=== PATIENT | female | born 1935 | race Hispanic/Latino ===

== ENCOUNTER 2019-06-28 19:56 | Emergency (ER) | payer OTHER ==
[~2019-06-28 19:56] MED LIST: ALEN70TA10 PO; FOLI1TAB15 PO; HYDR12.530 PO; LEVO50TA11 PO; MIRA50TA PO; ROSU5TAB PO
== END 2019-06-28 21:42 | disposition home or self-care (01) ==
LOC: EDH 19:56
DX: N81.10 Cystocele, unspecified (principal); I10 Essential (primary) hypertension; E78.5 Hyperlipidemia, unspecified; M81.0 Age-related osteoporosis without current pathological fracture; M19.90 Unspecified osteoarthritis, unspecified site; Z90.710 Acquired absence of both cervix and uterus; Z98.890 Other specified postprocedural states; Z88.1 Allergy status to other antibiotic agents

== ENCOUNTER 2020-04-16 10:19 | Inpatient (IN) | payer OTHER ==
[~2020-04-16] VITALS: Ht 160 cm; Wt 61.6 kg
[~2020-04-16 10:19] MED LIST changes: -ALEN70TA10 PO; +ALEN70TA69 PO
[2020-04-16] MEDS ORDERED: TETANUS/DIPHTHERIA TOXOID [ADULT] 0.5 ML VIAL IM ONE (10:38)
[2020-04-16] MEDS ORDERED: KETOROLAC TROMETHAMINE 30MG/ML ONE (11:49)
[2020-04-16] MEDS ORDERED: KETOROLAC TROMETHAMINE 15MG/ML ONE (11:59)
[2020-04-16] MEDS ORDERED: LACTULOSE 20 GM/30 ML UDCUP PO PRN (14:15)
[2020-04-16] MEDS ORDERED: ONDANSETRON HCL 4 MG/2 ML VIAL IVP PRN (14:15)
[2020-04-16] MEDS ORDERED: ACETAMINOPHEN 325 MG TAB PO PRN (14:15)
[2020-04-16] MEDS ORDERED: HYDRALAZINE HCL 20 MG/ML VIAL IV PRN (14:15)
[2020-04-16] MEDS ORDERED: ZOLPIDEM TARTRATE 5 MG TAB PO PRN (14:15)
[2020-04-16] MEDS ORDERED: LABETALOL 20 MG/4 ML DISP.SYRIN IV PRN (14:15)
[2020-04-16] MEDS ORDERED: HYDROMORPHONE HCL 0.5 MG/0.5 ML ML IVP PRN (14:15)
[2020-04-16 20:02] VITALS: BP 139/58
[2020-04-16] MEDS ORDERED: ESCI5TAB10 PO (20:35)
[2020-04-16] MEDS ORDERED: CILO50TA PO (20:35)
[2020-04-16] MEDS ORDERED: OMEP40CA13 PO (20:35)
[2020-04-16] MEDS ORDERED: DOCU100C33 PO (20:35)
[2020-04-16] MEDS ORDERED: AMLO-257 PO (20:35)
[2020-04-16] MEDS: NEOMY SULF/BACITRAC ZN/POLY OINT 30GM TUBE TP SCH (21:00)
[2020-04-16] MEDS: HEPARIN SODIUM 5000UNIT/ML 1ML VIAL SQ SCH (22:24)
[2020-04-16] MEDS: ATORVASTATIN CALCIUM 10 MG TABLET PO SCH (22:25)
[2020-04-16 23:05] VITALS: BP 123/79
[2020-04-17] VITALS (7 sets, daily range): BP systolic 125–164; BP diastolic 58–74
[2020-04-17 04:55] LABS: BASOPHILS % (AUTO) 0.5 % (0.0-5.0); EOSINOPHILS % (AUTO) 1.1 % (0.0-8.0); HEMATOCRIT 31.2 % (36-48); LYMPHOCYTES % (AUTO) 16.4 % (21.0-51.0); MEAN CORPUSCULAR HEMOGLOBIN 32.2 pg (27.0-33.0); MEAN CORPUSCULAR VOLUME 94.8 fL (79-99); MONOCYTES % (AUTO) 8.9 % (3.0-13.0); NEUTROPHILS % (AUTO) 72.9 % (40.0-77.0); PLATELET COUNT (AUTO) 172 K/uL (130-400); RED BLOOD CELL COUNT(AUTO) 3.29 MIL/uL (4.00-5.50); RED CELL DISTRIBUTION WIDTH 11.9 % (11.0-15.5); WHITE BLOOD COUNT (AUTO) 5.6 K/uL (4.8-10.8)
[2020-04-17 05:06] LABS: INR 0.95 (0.85-1.15); PARTIAL THROMBOPLASTIN TIME 29.9 SEC (26.3-35.5); PROTHROMBIN TIME 10.3 SEC (9.6-11.6)
[2020-04-17 05:18] LABS: ALBUMIN 3.4 g/dL (3.5-5.0); BILIRUBIN,TOTAL 0.6 mg/dL (0.2-1.0); CREATININE 0.7 mg/dL (0.5-1.5); POTASSIUM 3.3 mmol/L (3.5-5.1); THYROID STIMULATING HORMONE 0.95 uIU/mL (0.36-3.74)
[2020-04-17] MEDS ORDERED: POTASSIUM CHLORIDE 10% ELIXIR 20 MEQ/15 ML UDCUP PO PRN (07:45)
[2020-04-17] MEDS ORDERED: LIDOCAINE HCL-MPF 1% 2ML VIAL IV PRN (07:45)
[2020-04-17] MEDS ORDERED: POTASSIUM CHLORIDE 20MEQ/100ML 100 ML IV PRN (07:45)
[2020-04-17] MEDS: HYDROCHLOROTHIAZIDE 25 MG TABLET PO SCH (08:54)
[2020-04-17] MEDS: FOLIC ACID 1 MG TABLET PO SCH (08:54)
[2020-04-17] MEDS: LEVOTHYROXINE 50 MCG TABLET PO SCH (08:54)
[2020-04-17] MEDS: POTASSIUM CHLORIDE 20 MEQ ERTAB PO PRN (08:54)
[2020-04-17] MEDS: MIRABEGRON 50 MG PO SCH (08:55)
[2020-04-17] MEDS: HEPARIN SODIUM 5000UNIT/ML 1ML VIAL SQ SCH (08:59)
[2020-04-17] MEDS ORDERED: HEPARIN SODIUM 5000UNIT/ML 1ML VIAL SQ SCH (09:00)
[2020-04-17] MEDS: NEOMY SULF/BACITRAC ZN/POLY OINT 30GM TUBE TP SCH ×3 (09:00→21:15)
--- NOTE | 2020-04-17 15:00 | NUR ---
CONSENT FOR ORIF RIGHT WRIST SIGNED BY PATIENT WITH LEFT HAND PATIENT DOES NOT WANT BLOOD TRANSFUSIONS EVEN IF NEEDED BECAUSE SHE'S A [employer] WITNESS. TASHA BEAVER CALLED [facility] AND GAVE HER UPDATES ON PT STATUS. NO CONCERNS VOICED.
--- NOTE | 2020-04-17 17:54 | NUR ---
INITIAL: Met with pt this afternoon to discuss dcp. Pt mentions that she lives w her spouse. Prior to admission she was independent w ambulation and ADLs. She does not own any DME or receive services. Per pt she feels safe and comfortable to return home at ri and mentions that her spouse will be able to assist her as needed. CM to continue to follow and wait for Md recommendations. Addendum: 04/17/20 at 1756 by JASON WAGNER CM Amended: Links added.
[2020-04-17] MEDS: ACETAMINOPHEN-CODEINE 300/30MG TAB PO PRN (20:29)
[2020-04-17] MEDS: ATORVASTATIN CALCIUM 10 MG TABLET PO SCH (20:29)
[2020-04-18] VITALS (25 sets, daily range): BP systolic 112–168; BP diastolic 52–81
[2020-04-18 05:14] LABS: BASOPHILS % (AUTO) 0.4 % (0.0-5.0); HEMATOCRIT 31.7 % (36-48); LYMPHOCYTES % (AUTO) 24.8 % (21.0-51.0); MEAN CORPUSCULAR HEMOGLOBIN 32.3 pg (27.0-33.0); MEAN CORPUSCULAR HGB CONC 33.8 g/dL (32.0-36.0); MEAN CORPUSCULAR VOLUME 95.8 fL (79-99); MONOCYTES % (AUTO) 9.8 % (3.0-13.0); NEUTROPHILS % (AUTO) 60.8 % (40.0-77.0); PLATELET COUNT (AUTO) 162 K/uL (130-400); RED BLOOD CELL COUNT(AUTO) 3.31 MIL/uL (4.00-5.50); WHITE BLOOD COUNT (AUTO) 4.5 K/uL (4.8-10.8)
[2020-04-18 05:23] LABS: CREATININE 0.7 mg/dL (0.5-1.5); POTASSIUM 3.2 mmol/L (3.5-5.1)
[2020-04-18 05:27] LABS: INR 0.96 (0.85-1.15); PARTIAL THROMBOPLASTIN TIME 28.5 SEC (26.3-35.5); PROTHROMBIN TIME 10.4 SEC (9.6-11.6)
[2020-04-18] MEDS: LEVOTHYROXINE 50 MCG TABLET PO SCH (06:03)
[2020-04-18] MEDS: ACETAMINOPHEN-CODEINE 300/30MG TAB PO PRN (06:04)
[2020-04-18] MEDS: POTASSIUM CHLORIDE 20 MEQ ERTAB PO PRN ×2 (06:04→10:07)
[2020-04-18] MEDS: HYDROCHLOROTHIAZIDE 25 MG TABLET PO SCH (09:00)
[2020-04-18] MEDS: MIRABEGRON 50 MG PO SCH (09:00)
[2020-04-18] MEDS: FOLIC ACID 1 MG TABLET PO SCH (09:00)
[2020-04-18] MEDS: NEOMY SULF/BACITRAC ZN/POLY OINT 30GM TUBE TP SCH ×3 (10:14→21:41)
[2020-04-18] MEDS ORDERED: LACTATED RINGERS 1000ML 1,000 ML IV ONE (12:41)
[2020-04-18] MEDS ORDERED: MIDAZOLAM HCL 1 MG/ML 2ML VIAL ONE (14:01)
[2020-04-18] MEDS ORDERED: DEXAMETHASONE SOD PHOSPHATE 10MG/ML 1ML VIAL ONE (14:01)
[2020-04-18] MEDS ORDERED: LIDOCAINE PF 2% 5ML ABBOJECT ONE (14:01)
[2020-04-18] MEDS ORDERED: FENTANYL CITRATE PF 50 MCG/1 ML 2ML VIAL ONE (14:02)
[2020-04-18] MEDS ORDERED: ONDANSETRON HCL 4 MG/2 ML VIAL ONE (14:02)
[2020-04-18] MEDS ORDERED: PROPOFOL 10 MG/ML 20ML VIAL IV ONE (14:02)
[2020-04-18] MEDS ORDERED: ROCURONIUM 10MG/1ML SYR 10 MG/ML ML ONE (14:04)
[2020-04-18] MEDS ORDERED: CEFAZOLIN SODIUM 1 GM VIAL ONE (14:29)
[2020-04-18] MEDS ORDERED: EPHEDRINE SULFATE 50 MG/ML AMPULE ONE (14:31)
[2020-04-18] MEDS ORDERED: NEOSTIGMINE 5MG/5ML SYR IV ONE (15:31)
[2020-04-18] MEDS ORDERED: GLYCOPYRROLATE 1 MG/5 ML SYRINGE ONE (15:31)
[2020-04-18] MEDS ORDERED: ROPIVACAINE 0.5% 5MG/ML 30ML IJ ONE (15:35)
[2020-04-18] MEDS ORDERED: DIPHENHYDRAMINE HCL 25 MG CAPSULE PO PRN (16:00)
[2020-04-18] MEDS ORDERED: HYDROCODONE/ACETAMINOPHEN 5/325 MG TAB PO PRN (16:00)
[2020-04-18] MEDS ORDERED: FERROUS FUMARATE 324 MG TABLET PO PRN (16:00)
[2020-04-18] MEDS ORDERED: CALCIUM CARBONATE 500 MG TABLET PO PRN (16:00)
[2020-04-18] MEDS ORDERED: POTASSIUM CHLORIDE 20MEQ/100ML 100 ML IV PRN (16:00)
[2020-04-18] MEDS ORDERED: DiphenhydrAMINE HCL 50 MG/ML VIAL IVP PRN (16:00)
[2020-04-18] MEDS ORDERED: POTASSIUM CHLORIDE 10% ELIXIR 20 MEQ/15 ML UDCUP PO PRN (16:00)
[2020-04-18] MEDS: ACETAMINOPHEN EXTRA STRENGTH 500 MG TABLET PO SCH (16:00)
[2020-04-18] MEDS ORDERED: POTASSIUM CHLORIDE 20 MEQ ERTAB PO PRN (16:00)
[2020-04-18] MEDS: ATORVASTATIN CALCIUM 10 MG TABLET PO SCH (21:40)
[2020-04-18] MEDS: SODIUM CHLORIDE 0.9% 1000ML 1,000 ML IV SCH (21:40)
[2020-04-18] MEDS: CEFAZOLIN SODIUM 1 GM VIAL IVP SCH (22:26)
[2020-04-19] MEDS: ACETAMINOPHEN EXTRA STRENGTH 500 MG TABLET PO SCH ×2 (00:32→09:42)
[2020-04-19 04:00] VITALS: BP 113/60
[2020-04-19 04:37] LABS: HEMATOCRIT 32.4 % (36-48); MEAN CORPUSCULAR HEMOGLOBIN 31.7 pg (27.0-33.0); MEAN CORPUSCULAR HGB CONC 33.3 g/dL (32.0-36.0); RED BLOOD CELL COUNT(AUTO) 3.41 MIL/uL (4.00-5.50); RED CELL DISTRIBUTION WIDTH 12.2 % (11.0-15.5); WHITE BLOOD COUNT (AUTO) 5.5 K/uL (4.8-10.8)
[2020-04-19 04:53] LABS: CREATININE 0.8 mg/dL (0.5-1.5); POTASSIUM 4.1 mmol/L (3.5-5.1)
[2020-04-19] MEDS: SODIUM CHLORIDE 0.9% 1000ML 1,000 ML IV SCH (06:09)
[2020-04-19] MEDS: CEFAZOLIN SODIUM 1 GM VIAL IVP SCH (06:18)
[2020-04-19] MEDS: LEVOTHYROXINE 50 MCG TABLET PO SCH (06:18)
[2020-04-19 08:38] VITALS: BP 136/57
[2020-04-19] MEDS: MIRABEGRON 50 MG PO SCH (09:00)
[2020-04-19] MEDS ORDERED: POLYETHYLENE GLYCOL 3350 17 GM POWD.PACK PO SCH (09:00)
[2020-04-19] MEDS: HYDROCHLOROTHIAZIDE 25 MG TABLET PO SCH (09:41)
[2020-04-19] MEDS: FOLIC ACID 1 MG TABLET PO SCH (09:41)
[2020-04-19] MEDS: NEOMY SULF/BACITRAC ZN/POLY OINT 30GM TUBE TP SCH (09:42)
[2020-04-19] MEDS: ACETAMINOPHEN-CODEINE 300/30MG TAB PO PRN (09:43)
[2020-04-19] MEDS ORDERED: PSYLLIUM SEED 1 EACH PACKET ONE (09:46)
[2020-04-19] MEDS ORDERED: POLY17PO4 PO (10:56)
[2020-04-19] MEDS ORDERED: DOCU-275 PO (10:56)
--- NOTE | 2020-04-19 11:19 | NUR ---
PATIENT WAS AMBULATING IN THE ROOM WITHOUT ANY DIFFICULTY AND NO LOB NOTED.PATIENT IS WEARING RIGHT ARM SLING.NO SKILLED PT EVALUATION PERFORM, PATIENT IS PENDING D/C THIS AM. Addendum: 04/19/20 at 1121 by GANESH HUSAIN, PT PT Amended: Links added.
[2020-04-19 11:46] VITALS: BP 124/62
--- NOTE | 2020-04-19 11:55 | NUR ---
DISCHARGE INSTRUCTIONS GIVEN AND EXPLAINED SPOKE WITH ОЛЬГА, DAUGHTER AND EXPLAINED D/C INSTRUCTIONS UTILIZING TEACH BACK METHOD, VERBALIZED UNDERSTANDING.
[2020-04-19] MEDS ORDERED: PSYLLIUM SEED 1 EACH PACKET PO SCH (12:00)
[2020-04-19] MEDS ORDERED: DOCUSATE SODIUM 100 MG CAP PO SCH (21:00)
[2020-04-20] MEDS ORDERED: BISACODYL 5 MG TABLET.DR PO PRN (16:00)
[2020-04-21] MEDS ORDERED: BISACODYL 10 MG SUPP.RECT RC PRN (16:00)
== END 2020-04-19 13:15 | disposition home or self-care (01) | DRG 511 ==
LOC: EDH 10:19 → EDHIP 12:00 → OBSVTOIN 12:00 → 3DH 19:24
PROVIDERS: ADMIT Internal Medicine Critical Care Medicine; ATTEND Internal Medicine Critical Care Medicine
PROC: 3E0234Z Introduction of Serum, Toxoid and Vaccine into Muscle, Percutaneous Approach (ICD-10-PCS; 2020-04-16)
PROC: 0PSH04Z Reposition Right Radius with Internal Fixation Device, Open Approach (ICD-10-PCS; principal; 2020-04-18 14:42)
DX: S52.501A Unspecified fracture of the lower end of right radius, initial encounter for closed fracture (principal); J98.11 Atelectasis; S01.511A Laceration without foreign body of lip, initial encounter; M81.0 Age-related osteoporosis without current pathological fracture; I10 Essential (primary) hypertension; E03.9 Hypothyroidism, unspecified; E78.5 Hyperlipidemia, unspecified; S52.614A Nondisplaced fracture of right ulna styloid process, initial encounter for closed fracture; K21.9 Gastro-esophageal reflux disease without esophagitis; K59.00 Constipation, unspecified; W01.0XXA Fall on same level from slipping, tripping and stumbling without subsequent striking against object, initial encounter; Y93.89 Activity, other specified; Y92.89 Other specified places as the place of occurrence of the external cause; Y99.8 Other external cause status; Z79.02 Long term (current) use of antithrombotics/antiplatelets; Z88.1 Allergy status to other antibiotic agents; Z90.710 Acquired absence of both cervix and uterus; Z79.899 Other long term (current) drug therapy; Z23 Encounter for immunization
CPT/HCPCS: 36415; 71045; 73110; 80048; 80053; 83735; 84443; 85025; 85027; 85610; 85730; 90714; G0378; J0690; J1100; J1170; J1644; J1885; J2001; J2250; J2405; J2704; J2710; J2795; J3010; J3490; J7030; J7120

== ENCOUNTER 2021-01-21 18:56 | Emergency (ER) | payer OTHER ==
[~2021-01-21 18:56] MED LIST changes: -ALEN70TA69 PO; +ALEN70TA80 PO; +AMLO-257 PO; +CILO50TA PO; +DOCU-275 PO; +ESCI5TAB16 PO; +OMEP40CA13 PO; +POLY17PO4 PO
[2021-01-21] MEDS ORDERED: MORPHINE SULFATE 2 MG/ML 1ML SYG ONE (19:15)
[2021-01-21] MEDS ORDERED: ONDANSETRON HCL 4 MG/2 ML VIAL ONE (19:15)
[2021-01-21 19:22] LABS: BASOPHILS % (AUTO) 0.7 % (0.0-5.0); EOSINOPHILS % (AUTO) 2.7 % (0.0-8.0); LYMPHOCYTES % (AUTO) 25.1 % (21.0-51.0); MEAN CORPUSCULAR HGB CONC 34.1 g/dL (32.0-36.0); MEAN CORPUSCULAR VOLUME 96.9 fL (79-99); MONOCYTES % (AUTO) 8.7 % (3.0-13.0); NEUTROPHILS % (AUTO) 62.1 % (40.0-77.0); PLATELET COUNT (AUTO) 181 K/uL (130-400); RED BLOOD CELL COUNT(AUTO) 3.51 MIL/uL (4.00-5.50); RED CELL DISTRIBUTION WIDTH 12.2 % (11.0-15.5); WHITE BLOOD COUNT (AUTO) 5.9 K/uL (4.8-10.8)
[2021-01-21 19:36] LABS: INR 0.99 (0.85-1.15); POTASSIUM 4.6 mmol/L (3.5-5.1); PROTHROMBIN TIME 10.8 SEC (9.6-11.6)
[2021-01-21 19:38] LABS: PARTIAL THROMBOPLASTIN TIME 23.4 SEC (26.3-35.5)
[2021-01-21 19:40] LABS: BILIRUBIN,TOTAL 0.3 mg/dL (0.2-1.0); TOTAL PROTEIN, SERUM 7.9 g/dL (6.0-8.3)
[2021-01-21 19:44] LABS: B-TYPE NATRIURETIC PEPTIDE 81 pg/mL (0-100)
== END 2021-01-21 20:39 | disposition home or self-care (01) ==
LOC: EDH 18:56
DX: S20.222A Contusion of left back wall of thorax, initial encounter (principal); Z20.822 Contact with and (suspected) exposure to COVID-19; I10 Essential (primary) hypertension; E78.5 Hyperlipidemia, unspecified; M81.0 Age-related osteoporosis without current pathological fracture; Z88.1 Allergy status to other antibiotic agents; Z90.710 Acquired absence of both cervix and uterus; Z98.890 Other specified postprocedural states; W18.39XA Other fall on same level, initial encounter; Y93.89 Activity, other specified; Y92.090 Kitchen in other non-institutional residence as the place of occurrence of the external cause; Y99.8 Other external cause status
CPT/HCPCS: 36415; 70450; 71045; 71250; 72125; 80053; 82550; 83880; 84484; 85025; 85610; 85730; 87426; 93005; 96374; 96375; 99285; J2405; U0003